=== PATIENT | male | born 1965 | race African-American/Black ===

== ENCOUNTER 2020-01-19 13:13 | Emergency (ER) | payer MEDICAID, MEDICARE ==
[~2020-01-19] VITALS: Ht 170.2 cm; Wt 134.1 kg
[~2020-01-19 13:13] MED LIST: AMLO10TA7 PO; ASPI-1111 PO; AUD NEB; B CO1CAP4 PO; CINA30 PO; CLON0.1T83 PO; DSS100 PO; HYDR25TA84 PO; LABE100T8 PO; OMEP20 PO; PHOSLOC PO
[2020-01-19] MEDS ORDERED: B CO1CAP6 PO (15:55)
[2020-01-19] MEDS ORDERED: DOCU-275 PO (15:55)
[2020-01-19] MEDS ORDERED: ONDANSETRON HCL 4 MG/2 ML VIAL IM ONE (16:00)
[2020-01-19] MEDS ORDERED: HYDROmorphone 2 MG/ML SYRINGE IM ONE (16:00)
[2020-01-19 16:10] LABS: EOSINOPHILS % (AUTO) 6.2 % (1.0-6.0); HEMATOCRIT 46.5 % (41-53); HEMOGLOBIN 15.2 g/dL (13.5-17.5); LYMPHOCYTES % (AUTO) 19.7 % (22.0-44.0); MEAN CORPUSCULAR HEMOGLOBIN 30.6 pg (26.0-34.0); MEAN CORPUSCULAR HGB CONC 32.6 G/dL (31.0-37.0); MEAN CORPUSCULAR VOLUME 94 fL (80-100); MONOCYTES # (AUTO) 0.9 K/uL (0.1-1.0); MONOCYTES % (AUTO) 16.7 % (2.0-9.0); NEUTROPHILS # (AUTO) 2.9 K/uL (1.8-7.7); NEUTROPHILS % (AUTO) 56.4 % (40.0-70.0); PLATELET COUNT (AUTO) 147 K/uL (150-450); RED BLOOD CELL COUNT(AUTO) 4.95 MIL/uL (4.50-5.90); RED CELL DISTRIBUTION WIDTH 16.6 % (11.5-14.5)
[2020-01-19 16:22] LABS: CALCIUM, TOTAL 9.1 mg/dL (8.8-10.5); CREATININE 13.99 mg/dL (0.60-1.30); POTASSIUM 5.4 mmol/L (3.5-5.1)
[2020-01-19 16:28] LABS: ALBUMIN 3.2 g/dL (3.4-5.0); BILIRUBIN,TOTAL 0.7 mg/dL (0.1-1.0); TOTAL PROTEIN, SERUM 8.4 g/dL (6.4-8.2)
[2020-01-19 17:30] VITALS: BP 159/98
== END 2020-01-19 17:47 | disposition home or self-care (01) ==
LOC: EMS 13:14
DX: S76.011A Strain of muscle, fascia and tendon of right hip, initial encounter (principal); J45.909 Unspecified asthma, uncomplicated; I11.0 Hypertensive heart disease with heart failure; I50.9 Heart failure, unspecified; E78.00 Pure hypercholesterolemia, unspecified; I25.2 Old myocardial infarction; Z95.0 Presence of cardiac pacemaker; Z79.82 Long term (current) use of aspirin; X58.XXXA Exposure to other specified factors, initial encounter; Y93.89 Activity, other specified; Y92.89 Other specified places as the place of occurrence of the external cause; Y99.8 Other external cause status
CPT/HCPCS: 36415; 73502; 80053; 84484; 85025; 96372; 99284; J1170; J2405

== ENCOUNTER 2020-02-29 18:41 | Emergency (ER) | payer MEDICARE ==
[~2020-02-29] VITALS: Ht 170.2 cm; Wt 100.0 kg
[~2020-02-29 18:41] MED LIST changes: -B CO1CAP4 PO; +B CO1CAP6 PO; +DOCU-275 PO; -DSS100 PO
[2020-02-29 18:56] VITALS: BP 139/88
[2020-02-29] MEDS ORDERED: CARV6 PO (18:56)
== END 2020-02-29 19:33 | disposition left against medical advice (07) ==
LOC: EMS 18:44
DX: R68.84 Jaw pain (principal); Z53.21 Procedure and treatment not carried out due to patient leaving prior to being seen by health care provider